=== PATIENT | female | born 1940 | race African-American/Black ===

== ENCOUNTER → 2018-04-04 | Outpatient (CLI) | payer MEDICARE ==
--- NOTE | 2018-04-04 13:14 | RADIOLOGY REPORT (SQ) ---
EXAM DESCRIPTION: CT ABD/PELVIS WITH IV ONLY COMPLETED DATE/TIME: 04/04/2018 10:25 am REASON FOR STUDY: RLQ PAIN (R10.31) R10.31 RIGHT LOWER QUADRANT PAIN COMPARISON: None. TECHNIQUE: CT scan of the abdomen and pelvis performed using helical scanning technique with dynamic intravenous contrast injection. No oral contrast. Images reviewed with lung, soft tissue, and bone windows. Reconstructed coronal and sagittal MPR images reviewed. Delayed images for evaluation of the urinary system also acquired. All images stored on PACS. All CT scanners at this facility use dose modulation, iterative reconstruction, and/or weight based d osing when appropriate to reduce radiation dose to as low as reasonably achievable (ALARA). [facility]: Dose Right [facility]: CareDose [facility]: Dose Right [facility]: Teradose 4D [facility]: [employer] CONTRAST TYPE AND DOSE: contrast/concentration: Isovue 350.00 mg/ml; Total Contrast Delivered: 88.0 ml; Total Saline Delivered: 70.0 ml RENAL FUNCTION: Creatinine 1.1 RADIATION DOSE: CT Rad equipment meets quality standard of care and radiation dose reduction techniq ues were employed. CTDIvol: 5.4 - 6.2 mGy. DLP: 538 mGy-cm.. LIMITATIONS: None. FINDINGS: LOWER CHEST: No significant findings. No nodules or infiltrates. LIVER: A couple of hepatic cysts are present. No masses. SPLEEN: Normal size. No focal lesions. PANCREAS: No masses. No significant calcifications. No adjacent inflammation or peripancreatic fluid collections. Pancreatic duct not dilated. GALLBLADDER: Surgically absent. ADRENAL GLANDS: No significant masses or asymmetry. RIGHT KIDNEY AND URETER: No solid masses. No significant calcifications. No hydronephrosis or hyd roureter. LEFT KIDNEY AND URETER: No solid masses. No significant calcifications. No hydronephrosis or hydr oureter. AORTA AND VESSELS: No aneurysm. No dissection. Renal arteries, SMA, celiac without stenosis. RETROPERITONEUM: No retroperitoneal adenopathy, hemorrhage or masses. BOWEL AND PERITONEAL CAVITY: Mild descending and sigmoid diverticulosis. No associated inflammation. No obvious bowel mass. APPENDIX: Surgically absent. PELVIS: Urinary bladder is normal. Uterus is absent. Evaluation of the pelvis is slightly limited b y artifact from a left hip arthroplasty. ABDOMINAL WALL: No masses. No hernias. BONES: Left hip arthroplasty. Lumbar degenerative disc changes. Degenerative joint disease in the r ight hip. OTHER: No other significant finding. IMPRESSION: No acute findings in the abdomen or pelvis. Mild diverticulosis coli. Small hepatic cy sts. Osseous findings as described. TECHNICAL DOCUMENTATION: JOB ID: [id number] Quality ID # [id number]: Final reports with documentation of one or more dose reduction techniques (e.g., Au tomated exposure control, adjustment of the mA and/or kV according to patient size, use of iterative reconstruction technique) 2010 [employer]- All Rights Reserved Reading location - IP/workstation name: [email or web address]
--- NOTE | 2018-04-04 13:16 | RADIOLOGY REPORT (SQ) ---
EXAM DESCRIPTION: HIP RIGHT AP/LATERAL COMPLETED DATE/TIME: 04/04/2018 10:32 am REASON FOR STUDY: RIGHT HIP PAIN (M25.551) R10.31 RIGHT LOWER QUADRANT PAIN COMPARISON: None. NUMBER OF VIEWS: Two views. TECHNIQUE: AP pelvis and additional frog-leg view of the right hip. LIMITATIONS: None. FINDINGS: MINERALIZATION: Normal. RIGHT HIP: Joint space narrowing. Subchondral cysts. Marginal osteophytes on the femoral head. LEFT HIP: Left hip arthroplasty. PUBIS AND ISCHIUM: No fracture. PELVIS: No fracture. SACRUM: No fracture or dislocation. No worrisome bone lesions. LOWER LUMBAR SPINE: Lumbar degenerative disc changes. SOFT TISSUES: No findings. OTHER: No other significant finding. IMPRESSION: Moderate degenerative joint changes in the right hip. Lumbar degenerative disc disease. TECHNICAL DOCUMENTATION: JOB ID: [id number] [employer]- All Rights Reserved Reading location - IP/workstation name: [email or web address]
== END ==
LOC: RAD 09:54
PROVIDERS: ATTEND Internal Medicine
DX: M25.551 Pain in right hip (principal); R10.31 Right lower quadrant pain
CPT/HCPCS: 74177; 82565

== ENCOUNTER → 2018-05-23 | Outpatient (CLI) | payer MEDICARE ==
--- NOTE | 2018-05-23 13:20 | RADIOLOGY REPORT (SQ) ---
EXAM DESCRIPTION: UPPER GI/SM BOWEL COMPLETED DATE/TIME: 05/23/2018 11:29 am REASON FOR STUDY: EPIGASTRIC PAIN R10.13 EPIGASTRIC PAIN COMPARISON: None. TECHNIQUE: Under fluoroscopic guidance, patient ingested effervescent granules followed by thick an d thin barium. Fluoroscopic spot images and routine radiographic images acquired and stored on PACS . Following evaluation of esophagus and stomach, additional barium administered with serial delayed ab dominal radiographs until colonic identification. Fluoroscopic images recorded of the terminal ileu m. 12 MM BARIUM TABLET GIVEN: Yes. No significant delay in passage. FLUOROSCOPY TIME: 2.8 minutes of fluoroscopy was used. 29 images saved to PACS. LIMITATIONS: None. FINDINGS: NEUROMUSCULAR COORDINATION OF SWALLOW: Normal. No aspiration. ESOPHAGEAL MOTILITY: Normal peristalsis. No esophageal spasm. ESOPHAGEAL MUCOSA: Normal mucosa without masses or ulceration. GASTRO-ESOPHAGEAL JUNCTION: Small hiatal hernia with mild gastroesophageal reflux. Narrowing of the distal esophagus by early Schatzki's ring formation, does not delay passage of the 12 mm barium table t. STOMACH: Normal without masses or ulcerations. GASTRIC OUTLET: No delay in emptying. Normal pylorus. DUODENAL BULB: Normal distention. No spasm or ulceration. DUODENUM: Mucosa normal. Large duodenal diverticulum projecting from the 3rd portion the duodenum. JEJUNUM: Normal mucosal pattern. No dilatation, segmentation, strictures or masses. Small jejunal d iverticulum identified in the proximal jejunum. ILEUM: Normal mucosal pattern. No dilatation, segmentation, strictures or masses. TERMINAL ILEUM AND ILEO-CECAL VALVE: Normal mucosal pattern without cobble-stoning or stricture. Nor mal compression. PROXIMAL COLON: Incompletely imaged. No abnormality. NON-GI TRACT STRUCTURES: No significant finding. OTHER: Normal transit time of contrast through small bowel with filling of the ascending colon Seen a t 90 minutes. IMPRESSION: SMALL SLIDING HIATAL HERNIA WITH MILD GASTROESOPHAGEAL REFLUX. EARLY SCHATZKI'S RING FO RMATION, NONOBSTRUCTIVE. DUODENAL AND JEJUNAL DIVERTICULUM OTHERWISE UNREMARKABLE SMALL BOWEL FOLLOW-THROUGH. COMMENT: Quality ID [id number]: Final reports for procedures using fluoroscopy that document radiation exp osure indices, or exposure time and number of fluorographic images (if radiation exposure indices are not available) TECHNICAL DOCUMENTATION: JOB ID: [id number] [employer]- All Rights Reserved Reading location - IP/workstation name: [email or web address]
== END ==
LOC: RAD 08:38
PROVIDERS: ATTEND Internal Medicine
DX: R10.13 Epigastric pain (principal)
CPT/HCPCS: 74249

== ENCOUNTER → 2019-10-11 | Outpatient (CLI) | payer MEDICARE ==
--- NOTE | 2019-10-11 18:25 | RADIOLOGY REPORT (SQ) ---
EXAM DESCRIPTION: [facility]Lex: CT ABDOMEN PELVIS WITH IV CONTRAST CLINICAL HISTORY: 79 years Female; GENERALIZED ABDOMINAL PAIN; TECHNIQUE: CT of the abdomen and pelvis using intravenous contrast. All CT scans at this facility use dose modulation, iterative reconstruction, and/or weight based dosing when appropriate to reduce radiation dose to as low as reasonably achievable. COMPARISON: CT 04/04/2018 FINDINGS: Abdomen: Stomach: No significant distention or surrounding edema. Liver: 2 hepatic cysts are again noted. No ductal distention. Gallbladder: Surgically absent Pancreas:Within normal limits Spleen:Within normal limits Right kidney:No hydronephrosis. No focal lesion. Left kidney:No hydronephrosis. No focal lesion. Adrenal glands:Within normal limits Vascular structures: Mild scattered aortic calcifications. No aneurysm or dissection. Pelvis: Small bowel:No significant distention. Appendix: Not reliably identified. No regional edema. Colon: Scattered diverticula, mostly along the sigmoid colon. No acute pericolonic edema or colonic distention. No free intraperitoneal fluid or air. Bones: Mild chronic degenerative changes of the lumbar spine as on prior exam. Previous left hip arthroplasty. Severe chronic degenerative changes of the right hip. Bladder: Unremarkable. No pelvic mass or adenopathy. IMPRESSION: 1. No acute findings 2. Previous cholecystectomy and other chronic findings as on prior exam.
== END ==
LOC: RAD 10:10
PROVIDERS: ATTEND Internal Medicine
DX: D72.829 Elevated white blood cell count, unspecified (principal); R10.84 Generalized abdominal pain
CPT/HCPCS: 74177